=== PATIENT | female | born 1940 | race Caucasian/White ===

== ENCOUNTER 2018-12-31 11:03 | Outpatient (CLI) | payer MEDICARE, OTHER ==
--- NOTE | 2018-12-31 12:45 | RAD ---
LEFT WRIST THREE VIEWS: HISTORY: Followup for fracture. The patient has right wrist pain. 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 The bones are diffusely demineralized. On the lateral film, on today's examin ation, there is cortical lucency involving the dorsal side of the distal radius, suggesting a small a vulsive type injury, not appreciated on the previous exam. The difference appears to be related to p ositioning. IMPRESSION: Minimally displaced fracture involving the dorsal cortex of the distal radius. There is suggestion t hat there may be some associated soft tissue swelling in this region, which would suggest this may be more of an acute to subacute injury. Clinical correlation as to whether this relates to the area of the patient's pain. POS: [facility]
== END 2018-12-31 11:04 | disposition home or self-care (01) ==
LOC: BICRAD 11:03
PROVIDERS: ATTEND Specialist
DX: S52.502A Unspecified fracture of the lower end of left radius, initial encounter for closed fracture (principal)

== ENCOUNTER 2023-07-03 22:02 | Inpatient (IN) | payer OTHER, MEDICARE ==
[2023-07-03] MEDS ORDERED: dilTIAZem 25 MG/5 ML VIAL ONE (22:49)
[2023-07-03] MEDS ORDERED: Ketorolac Tromethamine 30 MG/ML VIAL ONE (22:49)
[2023-07-03] MEDS ORDERED: Ondansetron PF 4 MG/2 ML Vial IVP PRN (22:55)
[2023-07-03] MEDS ORDERED: Morphine 2 MG/ML VIAL SLOW IVP PRN (22:55)
[2023-07-03] MEDS ORDERED: Ipratropium/Albuterol 3 ML NEB NEB PRN ×2 (22:55→22:59)
[2023-07-03] MEDS ORDERED: Cyclobenzaprine 10 MG TAB PO PRN (22:59)
[2023-07-03] MEDS ORDERED: traMADol HCl 50 MG TAB PO PRN (22:59)
[2023-07-03] MEDS ORDERED: Sodium Chloride 0.9% 1,000 ML IV SCH (23:00)
[2023-07-03 23:41] LABS: #Basophils 0.1 thou/uL (0.0-0.2); #Monocytes 0.7 thou/uL (0.11-0.59); #Neutrophils 13.2 thou/uL (1.40-6.50); %Basophils 0.5 % (0.0-1.0); %Eosinophils 0.1 % (0.0-10.0); %Monocytes 4.6 % (0.0-10.0); %Neutrophils 86.1 % (42.0-75.0); Hematocrit 42.4 % (36.0-47.0); Mean Corpuscular Hemoglobin 29.2 pg (27.0-31.0); Mean Corpuscular Volume 88.5 fl (78.0-98.0); Mean Platelet Volume 9.8 fL (7.4-10.4); Platelet Count 203 10x3/uL (130-400); RBC Distribution Width 12.9 % (11.5-14.5); Red Blood Cell (RBC) Count 4.79 mill/uL (4.20-5.40); White Blood Cell (WBC) Count 15.3 10x3/uL (4.8-10.8)
[2023-07-03 23:53] LABS: INR-International Normal Ratio 1.1; Prothrombin Time 14.7 sec (12.0-14.7)
[2023-07-04 00:03] LABS: ALT (SGPT) 10 U/L (8-55); AST (SGOT) 14 U/L (5-34); Albumin 3.5 g/dL (3.4-4.8); Alkaline Phosphatase 69 U/L (40-110); Anion Gap 16 mmol/L (10-20); BUN (Urea Nitrogen) 14 mg/dL (9.8-20.1); Bilirubin, Total 0.5 mg/dL (0.2-1.2); CK (CPK) 70 U/L (29-168); Calc. Creatinine Clearance 0 mL/min (70-130); Calcium 8.4 mg/dL (7.8-10.44); Carbon Dioxide 22 mmol/L (23-31); Chloride 102 mmol/L (98-107); Estimated GFR 58; Globulin 3.6 g/dL (2.4-3.5); Glucose 318 mg/dL (83-110); Potassium 3.8 mmol/L (3.5-5.1); Protein, Total 7.1 g/dL (5.8-8.1); Sodium 136 mmol/L (136-145)
[2023-07-04] MEDS: traMADol HCl 50 MG TAB PO SCH ×5 (00:44→21:24)
[2023-07-04] MEDS: Acetaminophen 500 MG TAB PO SCH ×5 (00:44→21:23)
[2023-07-04 01:09] VITALS: BMI 37.5
[2023-07-04 01:30] LABS: Bacteria/HPF None Seen HPF (None Seen); Bilirubin Negative (Negative); Blood, Urine Negative (Negative); CAUTI Indications for Culture Alt mental st,lethar; Clarity Clear (Clear); Glucose, Urine (Dipstick) 500 mg/dL (Negative); Ketone, Urine Negative (Negative); Leukocyte 75 Leu/uL (Negative); Nitrite Negative (Negative); Protein, Urine (Dipstick) Negative (Neg-Trace); RBC/HPF 0-3 HPF (0-3); Specific Gravity, Urine 1.008 (1.002-1.036); Squamous Epithelial 0-3 HPF (0-3); Urobilinogen Normal mg/dL (Less than 2)
[2023-07-04 01:35] LABS: Urine Culture Reflex No No
[2023-07-04 05:21] LABS: #Monocytes 0.7 thou/uL (0.11-0.59); #Neutrophils 10.2 thou/uL (1.40-6.50); %Basophils 0.3 % (0.0-1.0); %Lymphocytes 11.4 % (21.0-51.0); %Monocytes 5.6 % (0.0-10.0); %Neutrophils 82.2 % (42.0-75.0); Hematocrit 38.7 % (36.0-47.0); Hemoglobin 12.8 g/dL (12.0-16.0); Mean Corpuscular HGB CONC 33.1 g/dL (32.0-36.0); Mean Corpuscular Hemoglobin 28.8 pg (27.0-31.0); Mean Corpuscular Volume 87.2 fl (78.0-98.0); Mean Platelet Volume 9.6 fL (7.4-10.4); Platelet Count 171 10x3/uL (130-400); Red Blood Cell (RBC) Count 4.44 mill/uL (4.20-5.40); White Blood Cell (WBC) Count 12.4 10x3/uL (4.8-10.8)
[2023-07-04 05:42] LABS: Phosphorus 3.7 mg/dL (2.3-4.7)
[2023-07-04 05:44] LABS: Anion Gap 12 mmol/L (10-20); BUN (Urea Nitrogen) 13 mg/dL (9.8-20.1); Calc. Creatinine Clearance 89 mL/min (70-130); Calcium 8.1 mg/dL (7.8-10.44); Carbon Dioxide 25 mmol/L (23-31); Chloride 103 mmol/L (98-107); Estimated GFR 67; Glucose 267 mg/dL (83-110); Magnesium 1.5 mg/dL (1.6-2.6); Potassium 3.7 mmol/L (3.5-5.1); Sodium 136 mmol/L (136-145)
[2023-07-04] MEDS ORDERED: Furosemide 20 MG/2 ML VIAL SLOW IVP SCH (06:45)
[2023-07-04] MEDS ORDERED: Magnesium Sulfate In Water 4 GM in Premix Bag 1 BAG IVPB SCH (07:00)
[2023-07-04 07:34] LABS: Troponin I 0.043 ng/mL (< 0.028)
[2023-07-04 07:34] LABS: Troponin I Less than 0.010 ng/mL (< 0.028)
[2023-07-04] MEDS: Famotidine/PF 20 mg/2ml Vial SLOW IVP SCH ×2 (07:56→21:14)
[2023-07-04] MEDS: Metoprolol Tartrate 50 MG TAB PO SCH ×2 (07:56→18:33)
[2023-07-04] MEDS ORDERED: Metoprolol Tartrate 25 MG TAB PO SCH (09:00)
[2023-07-04] MEDS: Polyethylene Glycol 3350 17 GM Packet PO SCH (09:52)
[2023-07-04] MEDS: Senokot S 8.6-50 MG TAB PO SCH ×2 (09:52→21:23)
[2023-07-04] MEDS: Multivitamin W/ Minerals 1 TAB PO SCH (09:52)
[2023-07-04] MEDS ORDERED: CEFAZOLIN 2 GM in Sodium Chloride 0.9% 100 ML IVPB SCH (12:15)
[2023-07-04] MEDS ORDERED: Ondansetron HCl/PF 4 MG/2 ML Vial IVP PRN (16:10)
[2023-07-04] MEDS ORDERED: Promethazine HCl 25 MG/ML VIAL IM PRN (16:10)
[2023-07-04] MEDS ORDERED: HYDROmorphone 2 MG/ML VIAL SLOW IVP PRN (16:10)
[2023-07-04] MEDS ORDERED: Dexmedetomidine 200 MCG/2 ML VIAL ONE (16:14)
[2023-07-04] MEDS ORDERED: fentaNYL PF 100 MCG/2 ML SYRINGE ONE (16:14)
[2023-07-04] MEDS ORDERED: Ondansetron PF 4 MG/2 ML Vial ONE (16:22)
[2023-07-04] MEDS ORDERED: ePHEDrine Sulfate 50 MG/10 ML VIAL ONE (16:22)
[2023-07-04] MEDS ORDERED: PROPOFOL 200 MG/20 ML VIAL ONE (16:22)
[2023-07-04] MEDS ORDERED: Esmolol 100 MG/10 ML VIAL ONE ×2 (16:22→18:01)
[2023-07-04] MEDS ORDERED: PHENYLEPHRINE-NS 100 MCG/ML 10 ML SYRINGE ONE (16:22)
[2023-07-04] MEDS ORDERED: Digoxin 0.5 MG/2 ML AMP ONE (19:04)
[2023-07-04] MEDS: CEFAZOLIN 2 GM in Sodium Chloride 0.9% 100 ML IVPB SCH (21:13)
[2023-07-05] MEDS: Digoxin 0.5 MG/2 ML AMP SLOW IVP SCH ×2 (01:25→06:35)
[2023-07-05 04:15] LABS: #Basophils 0.1 thou/uL (0.0-0.2); #Eosinphils 0.1 thou/uL (0.0-0.7); #Monocytes 0.9 thou/uL (0.11-0.59); #Neutrophils 9.2 thou/uL (1.40-6.50); %Basophils 0.5 % (0.0-1.0); %Eosinophils 0.6 % (0.0-10.0); %Lymphocytes 17.8 % (21.0-51.0); %Monocytes 7.3 % (0.0-10.0); %Neutrophils 73.2 % (42.0-75.0); Hematocrit 32.2 % (36.0-47.0); Hemoglobin 10.5 g/dL (12.0-16.0); Mean Corpuscular HGB CONC 32.6 g/dL (32.0-36.0); Mean Platelet Volume 9.7 fL (7.4-10.4); Platelet Count 165 10x3/uL (130-400); Red Blood Cell (RBC) Count 3.62 mill/uL (4.20-5.40); White Blood Cell (WBC) Count 12.6 10x3/uL (4.8-10.8)
[2023-07-05 04:46] LABS: Anion Gap 11 mmol/L (10-20); BUN (Urea Nitrogen) 15 mg/dL (9.8-20.1); Calc. Creatinine Clearance 78 mL/min (70-130); Calcium 7.8 mg/dL (7.8-10.44); Carbon Dioxide 28 mmol/L (23-31); Chloride 100 mmol/L (98-107); Estimated GFR 58; Glucose 227 mg/dL (83-110); Magnesium 2.1 mg/dL (1.6-2.6); Phosphorus 4.5 mg/dL (2.3-4.7); Potassium 4.4 mmol/L (3.5-5.1); Sodium 135 mmol/L (136-145)
[2023-07-05] MEDS: Acetaminophen 500 MG TAB PO SCH ×3 (06:00→17:25)
[2023-07-05] MEDS: traMADol HCl 50 MG TAB PO SCH ×3 (06:00→17:24)
[2023-07-05] MEDS: CEFAZOLIN 2 GM in Sodium Chloride 0.9% 100 ML IVPB SCH (06:01)
[2023-07-05] MEDS: Senokot S 8.6-50 MG TAB PO SCH ×2 (08:59→21:59)
[2023-07-05] MEDS: Metoprolol Tartrate 50 MG TAB PO SCH ×2 (09:01→20:43)
[2023-07-05] MEDS: Famotidine/PF 20 mg/2ml Vial SLOW IVP SCH ×2 (09:04→20:43)
[2023-07-05] MEDS: Multivitamin W/ Minerals 1 TAB PO SCH (09:05)
[2023-07-05] MEDS: Polyethylene Glycol 3350 17 GM Packet PO SCH (09:21)
[2023-07-05] MEDS ORDERED: Dextrose 5% in Water 1,000 ML IV PRN (18:15)
[2023-07-05] MEDS ORDERED: Glucagon 1 MG/ML KIT IM PRN (18:15)
[2023-07-05] MEDS ORDERED: Dextrose 50% Abboject 50 ML SYRINGE IVP PRN (18:15)
[2023-07-05] MEDS: Insulin Regular 300 UNITS/3 ML VIAL SC PRN ×2 (18:36→20:45)
[2023-07-06] MEDS: traMADol HCl 50 MG TAB PO SCH
[2023-07-06] MEDS: Acetaminophen 500 MG TAB PO SCH
[2023-07-06] MEDS ORDERED: Acetaminophen/Codeine 30-300mg Tablet PO PRN (02:24)
[2023-07-06 04:58] LABS: #Basophils 0.1 thou/uL (0.0-0.2); #Eosinphils 0.2 thou/uL (0.0-0.7); #Monocytes 1.1 thou/uL (0.11-0.59); #Neutrophils 9.1 thou/uL (1.40-6.50); %Basophils 0.6 % (0.0-1.0); %Eosinophils 1.9 % (0.0-10.0); %Lymphocytes 15.3 % (21.0-51.0); %Monocytes 8.6 % (0.0-10.0); Hemoglobin 8.9 g/dL (12.0-16.0); Mean Corpuscular Hemoglobin 29.1 pg (27.0-31.0); Mean Corpuscular Volume 88.2 fl (78.0-98.0); Mean Platelet Volume 10.5 fL (7.4-10.4); Platelet Count 175 10x3/uL (130-400); RBC Distribution Width 13.3 % (11.5-14.5); Red Blood Cell (RBC) Count 3.06 mill/uL (4.20-5.40); White Blood Cell (WBC) Count 12.4 10x3/uL (4.8-10.8)
[2023-07-06] MEDS: Acetaminophen 325 MG TAB PO SCH ×3 (04:59→17:00)
[2023-07-06 05:26] LABS: Digoxin 1.48 ng/mL (0.8-2.0)
[2023-07-06] MEDS: Digoxin 0.5 MG/2 ML AMP SLOW IVP SCH ×3 (07:10→17:02)
[2023-07-06] MEDS: Aspirin 81 mg Enteric Coated Tablet PO SCH (09:02)
[2023-07-06] MEDS: Famotidine/PF 20 mg/2ml Vial SLOW IVP SCH ×2 (09:03→20:26)
[2023-07-06] MEDS: Senokot S 8.6-50 MG TAB PO SCH (09:03)
[2023-07-06] MEDS: Polyethylene Glycol 3350 17 GM Packet PO SCH (09:03)
[2023-07-06] MEDS: Multivitamin W/ Minerals 1 TAB PO SCH (09:03)
[2023-07-06] MEDS: Metoprolol Tartrate 50 MG TAB PO SCH (09:03)
[2023-07-06] MEDS: Ferrous Sulfate 325 MG TAB PO SCH (17:00)
[2023-07-06] MEDS: Insulin Regular 300 UNITS/3 ML VIAL SC PRN (17:44)
[2023-07-07] MEDS: Digoxin 0.5 MG/2 ML AMP SLOW IVP SCH (00:09)
[2023-07-07] MEDS: Acetaminophen 325 MG TAB PO SCH ×4 (02:46→17:05)
[2023-07-07] MEDS: Senokot S 8.6-50 MG TAB PO SCH ×3 (02:58→20:23)
[2023-07-07] MEDS: Ascorbic Acid 500 mg Chewable Tablet PO SCH ×3 (02:59→20:23)
[2023-07-07] MEDS: Metoprolol Tartrate 50 MG TAB PO SCH ×3 (02:59→20:23)
[2023-07-07] MEDS: Aspirin 81 mg Enteric Coated Tablet PO SCH (02:59)
[2023-07-07 05:03] LABS: Hematocrit 27.4 % (36.0-47.0)
[2023-07-07] MEDS: glipiZIDE 10 MG TAB PO SCH ×2 (09:10→20:23)
[2023-07-07] MEDS: Ferrous Sulfate 325 MG TAB PO SCH ×2 (09:12→17:05)
[2023-07-07] MEDS: Multivitamin W/ Minerals 1 TAB PO SCH (09:12)
[2023-07-07] MEDS: Polyethylene Glycol 3350 17 GM Packet PO SCH (09:13)
[2023-07-07 10:25] LABS: Bacteria/HPF 3+ HPF (None Seen); Bilirubin Negative (Negative); Blood, Urine Negative (Negative); Clarity Clear (Clear); Glucose, Urine (Dipstick) Normal (Negative); Ketone, Urine 10 mg/dL (Negative); Leukocyte 250 Leu/uL (Negative); Nitrite Negative (Negative); Protein, Urine (Dipstick) Negative (Neg-Trace); RBC/HPF 0-3 HPF (0-3); Specific Gravity, Urine 1.017 (1.002-1.036); Squamous Epithelial 0-3 HPF (0-3); Urobilinogen Normal mg/dL (Less than 2); WBC/HPF 0-3 HPF (0-3); pH, Urine 5.5 (5.0-9.0)
[2023-07-07] MEDS: Insulin Regular 300 UNITS/3 ML VIAL SC PRN (11:37)
[2023-07-07] MEDS ORDERED: Rivaroxaban 10 MG TAB PO SCH (17:00)
[2023-07-07 20:05] VITALS: BP 167/71; TEMP 98.6
== END 2023-07-07 20:35 | DRG 956 ==
LOC: ERS 22:02 → 2NO 22:57
PROVIDERS: ADMIT Specialist; ATTEND Specialist
PROC: 0QS736Z Reposition Left Upper Femur with Intramedullary Internal Fixation Device, Percutaneous Approach (ICD-10-PCS; principal; 2023-07-04)
DX: S72.22XA Displaced subtrochanteric fracture of left femur, initial encounter for closed fracture (principal); S32.592A Other specified fracture of left pubis, initial encounter for closed fracture; D62 Acute posthemorrhagic anemia; I48.19 Other persistent atrial fibrillation; E11.9 Type 2 diabetes mellitus without complications; S72.142A Displaced intertrochanteric fracture of left femur, initial encounter for closed fracture; I10 Essential (primary) hypertension; W01.0XXA Fall on same level from slipping, tripping and stumbling without subsequent striking against object, initial encounter
CPT/HCPCS: 36415; 36416; 71045; 72170; 72192; 80048; 80053; 80162; 81001; 81003; 81015; 82550; 83735; 83880; 84100; 84443; 84484; 85014; 85018; 85025; 85610; 85730; 86850; 86900; 86901; 93005; 96361; 96374; 96375; C1713; J1160; J1815; J1885; J1940; J2405; J2704; J3475; J3490; J7050; S0028